=== PATIENT | male | born 1950 | race Caucasian/White ===

== ENCOUNTER → 2017-04-22 | Outpatient (CLI) | payer MEDICARE ==
[2017-04-22 11:16] LABS: C Reactive Protein 5.2 mg/L (<10.0); Uric Acid 4.6 mg/dL (3.5-8.5)
== END | disposition home or self-care (01) ==
LOC: LABWHC1 09:10
PROVIDERS: ATTEND Orthopaedic Surgery
DX: M25.531 Pain in right wrist (principal)
CPT/HCPCS: 36415; 84550; 85652; 86140

== ENCOUNTER 2017-08-25 14:02 | Emergency (ER) | payer MEDICARE ==
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
--- NOTE | 2017-08-25 15:01 | ED ---
Disposition Clinical Impression: Left leg DVT, Cerebral mass Disposition: HOME SELF-CARE Condition: Good Instructions: Deep Venous Thrombosis (ED) Prescriptions: Rivaroxaban [Xarelto Starter Pack] 1 each PO DIRECTED #1 pack Referrals: Smiley Black MD [Primary Care Provider] - 1-2 days
[2017-08-25 15:20] VITALS: BP 127/70; PULSE 53; RESP 19; TEMP 97.3
== END 2017-08-25 15:20 | disposition home or self-care (01) ==
LOC: EC 14:02
DX: I82.432 Acute embolism and thrombosis of left popliteal vein (principal); G93.89 Other specified disorders of brain; I10 Essential (primary) hypertension; K21.9 Gastro-esophageal reflux disease without esophagitis; E07.9 Disorder of thyroid, unspecified; Z79.51 Long term (current) use of inhaled steroids; Z79.899 Other long term (current) drug therapy; Z88.8 Allergy status to other drugs, medicaments and biological substances; Z91.09 Other allergy status, other than to drugs and biological substances; Z85.841 Personal history of malignant neoplasm of brain; Z98.890 Other specified postprocedural states
CPT/HCPCS: 99283

== ENCOUNTER → 2017-08-25 | Outpatient (CLI) | payer MEDICARE ==
--- NOTE | 2017-08-25 14:14 | US ---
EXAMINATION TYPE: US venous doppler duplex LE BI DATE OF EXAM: 08/25/2017 1:33 PM COMPARISON: 08/18/2016 CLINICAL HISTORY: I82.403, LOWER EXT SWELLING, GLIOBLASTOMA,. Edema bilateral legs SIDE PERFORMED: Bilateral TECHNIQUE: The lower extremity deep venous system is examined utilizing real time linear array sonog boni with graded compression, doppler sonography and color-flow sonography. VESSELS IMAGED: External Iliac Vein (EIV) Common Femoral Vein Deep Femoral Vein Greater Saphenous Vein * Femoral Vein Popliteal Vein Small Saphenous Vein * Proximal Calf Veins (* superficial vessels) Right Leg: No evidence of DVT Left Leg: +Positive for DVT left popliteal vein IMPRESSION: 1. Findings are compatible with acute DVT within the left popliteal vein.
== END | disposition home or self-care (01) ==
LOC: RADUSWWP 12:29
PROVIDERS: ATTEND Neurological Surgery
DX: I82.432 Acute embolism and thrombosis of left popliteal vein (principal)
CPT/HCPCS: 93970

== ENCOUNTER 2017-10-16 17:27 | Emergency (ER) | payer MEDICARE ==
[2017-10-16 17:37] VITALS: RESP 18
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
[2017-10-16 18:35] LABS: ALT 79 U/L (21-72); AST 28 U/L (17-59); Alkaline Phosphatase 65 U/L (38-126); Anion Gap 6 mmol/L; Blood Urea Nitrogen 20 mg/dL (9-20); Calcium 8.5 mg/dL (8.4-10.2); Carbon Dioxide 25 mmol/L (22-30); Chloride 102 mmol/L (98-107); Glucose 128 mg/dL (74-99); Non-African American GFR(MDRD) >60 (>60 ml/min/1.73 sqM); Potassium 3.6 mmol/L (3.5-5.1); Sodium 133 mmol/L (137-145); Total Bilirubin 0.4 mg/dL (0.2-1.3); Total Protein 5.6 g/dL (6.3-8.2)
--- NOTE | 2017-10-16 19:13 | CT ---
EXAMINATION TYPE: CT brain wo con DATE OF EXAM: 10/16/2017 COMPARISON: 02/25/2017 HISTORY: Brain surgery 10-06-17. Frontal headache today. CT DLP: 1012.70 mGycm Automated exposure control for dose reduction was used. FINDINGS: There is right frontal craniotomy defect. There is subcutaneous fluid over the right frontal bone con sistent with seroma or hematoma of the scalp. There is a 5 cm triangular-shaped area of hypodensity in the right frontal lobe related to encephalom alacia and surgery. This is fluid density and is new compared to old exam. There is no evidence of in tracranial hemorrhage. There is no significant mass effect. There is however slight effacement of the frontal horn of the right lateral ventricle adjacent to the encephalomalacia that is probably due to the 9 mm thick subdural hygroma. IMPRESSION: POSTSURGICAL CHANGES WITH ENCEPHALOMALACIA IN THE RIGHT FRONTAL LOBE. LARGE SCALP SEROMA OR HEMATOMA. NO INTRACRANIAL HEMORRHAGE. THERE IS A LENS-SHAPED FLUID COLLECTION OVER THE RIGHT FRONTAL LOBE CONV EXITY THAT MEASURES UP TO 9 MM IN THICKNESS CONSISTENT WITH SUBDURAL HYGROMA.
[2017-10-16 19:29] LABS: Basophils % (A) 0 %; CH 33.1; CHCM 34.9; Eosinophils # (A) 0.1 k/uL (0-0.7); Eosinophils % (A) 1 %; HCT 31.7 % (39.0-53.0); HDW 3.37; HGB 10.8 gm/dL (13.0-17.5); Luc % (Auto) 2; Lymphocytes # (A) 0.4 k/uL (1.0-4.8); Lymphocytes % (A) 4 %; MCH 32.4 pg (25.0-35.0); MCV 95.3 fL (80.0-100.0); Mean Platelet Volume 6.9; Monocytes # (A) 0.5 k/uL (0-1.0); Monocytes % (A) 7 %; Neutrophils # (A) 6.9 k/uL (1.3-7.7); Neutrophils % (A) 86 %; RBC 3.32 m/uL (4.30-5.90); RDW 14.8 % (11.5-15.5); WBC (Perox) 7.94
[2017-10-16 21:23] VITALS: BP 136/84; PULSE 73; TEMP 98.4
== END 2017-10-16 21:23 | disposition home or self-care (01) ==
LOC: EC 17:27
DX: C71.9 Malignant neoplasm of brain, unspecified (principal); G93.89 Other specified disorders of brain; L76.34 Postprocedural seroma of skin and subcutaneous tissue following other procedure; I10 Essential (primary) hypertension; K21.9 Gastro-esophageal reflux disease without esophagitis; M19.90 Unspecified osteoarthritis, unspecified site; E07.9 Disorder of thyroid, unspecified; Z79.52 Long term (current) use of systemic steroids; Z79.899 Other long term (current) drug therapy; Z88.8 Allergy status to other drugs, medicaments and biological substances; Z91.09 Other allergy status, other than to drugs and biological substances; Z82.3 Family history of stroke
CPT/HCPCS: 36415; 70450; 80053; 85025; 99284